=== PATIENT | female | born 1995 | race Caucasian/White ===

== ENCOUNTER 2017-11-09 17:32 | Inpatient (IN) | payer OTHER ==
[~2017-11-09] VITALS: Ht 175.3 cm; Wt 84.4 kg
[2017-11-09] MEDS ORDERED: SODIUM CHLOR 0.9% 1000 ML INJ 100 ML IV ONE (17:55)
[2017-11-09] MEDS ORDERED: SODIUM CHLOR 0.9% 1000 ML INJ 1,000 ML IV ONE ×2 (17:55)
[2017-11-09] MEDS ORDERED: SODIUM CHLORIDE 0.9% FLUSH 10 ML FLUSH IV FLUSH PRN (18:00)
[2017-11-09] MEDS ORDERED: ACETAMINOPHEN 325 MG TAB PO PRN (18:00)
[2017-11-09] MEDS ORDERED: ONDANSETRON HCL 4 MG/2 ML VIAL IV PUSH PRN (18:00)
[2017-11-09] MEDS ORDERED: ONDANSETRON ODT 4 MG TAB PO PRN (18:00)
[2017-11-09 18:10] VITALS: BP 118/61; PULSE 110
[2017-11-09] MEDS ORDERED: ACETAMINOPHEN 1000 MG/100 ML 100 ML IV ONE (18:15)
--- NOTE | 2017-11-09 18:23 | HHI.HP ---
HPI Chief Complaint fever and back pain Travel History International Travel<30 Days: No Contact w/Intl Traveler<30Days: No History of Present Illness HPI 22 yo G1 with iup at 35 w 3d by 9 wk u/s being admitted to for suspected pyelonephritis. Seh has had two days of left sided flank pain, subjective fevers adn chills. She has not had dysuria or frequency. Temp in office today 102.5F, UDip with 3+ leukocytes. BP 150/90. She had a BPP as she has had decreased FM for two days. BPP 6/8 (-2 for movement), Tracy 10, UA dopplers upper limit of normal and FHT 180's. care c/b subutex use, dose 8mg daily; sees Dr. Rolle in [place] for this. Initiated for chronic back pain. Weeks Gestation: 35 Para: 0 : 1 History Past Medical History Narrative Medical chronic back pain, opioid dependence LSIL pap Obstetric History Obstetric History G1 current Past Surgical History Surgical History: No Previous Surgery Family History Family History: Negative Social History Alcohol Use: No Tobacco Use: Yes Substance Abuse: Yes (subtex) Allergies-Medications (Allergen,Severity, Reaction): Coded Allergies: No Known Allergies (Unverified , 11/09/17) Review of Systems General / Constitutional: Fever, Chills Eyes: No: Diploplia, Blurred Vision, Visual changes, Pain, Photophobia HENT: No: Headaches, Vertigo, Lightheadedness Cardiovascular: No: Irregular Rhythm, Chest Pain or Discomfort, Palpitations, Tachycardia, Syncope, Varicosities, Edema, Cyanosis Respiratory: No: Cough, Short of Breath, Other Gastrointestinal: Nausea, No: Vomiting, Diarrhea, Abdominal Pain, Hematemesis, Hematochezia, Constipation, Changes in Bowel Habits, Indigestion, Loss of Appetite, Other Genitourinary: Other (cva tenderness left), No: Urgency, Frequency, Dysuria, Nocturia, Hematuria, Decreased Urinary Output, Oliguria, Hesitancy, Dribbling, Incontinence, Pelvic Pain, Dyspareunia, Discharge, Menorrhagia, Vaginal Bleeding Musculoskeletal: No: Limited ROM, Weakness, Cramping, Edema, Pain, Other Skin: No Rash, No Itching, No Dryness, No Lumps, No Change in Pigmentation, No Change in Nails, No Alopecia, No Lesions, No Breast Lumps, No Breast Tenderness , No Breast Swelling, No Other Neurologic: No: Weakness, Dizziness, Syncope, Focal Abnormalities, Coordination Problem, Headache, Slurred Speech, Seizures, Other Endocrine: No: Heat Intolerance, Cold Intolerance, Polydipsia, Polyuria, Other Hematologic/Lymphatic: No Easy Bruising, No Lymph Node Enlargement, No Other Physical Exam Narrative GENERAL: Well-nourished, well-developed patient. SKIN: Warm and dry. HEAD: Normocephalic and atraumatic. EYES: No scleral icterus. No injection or drainage. ENT: No nasal drainage noted. Mucous membranes pink. Airway patent. NECK: Supple, trachea midline. No JVD. CARDIOVASCULAR: Regular rate and rhythm without murmurs, gallops, or rubs. RESPIRATORY: No accessory muscle use. BREASTS decline ABDOMEN/GI: Abdomen soft, non-tender, bowel sounds present, no rebound, no guarding Gravid to 33 weeks size Fundal Height: [-] GENITOURINARY: External Genitalia: intact and normal in appearance BUS glands: [-] Cervix: nl, cl/th/high Presentation: ceph Membranes: [intact Uterine Contractions: [-] FHT's: tachycardia, 180's BPP 6/8 EXTREMITIES: No cyanosis or edema. BACK: CVA tenderness Left NEUROLOGICAL: Awake and alert. Motor and sensory grossly within normal limits. Five out of 5 muscle strength in all muscle groups. Normal speech. Caprini VTE Risk Assessment Caprini VTE Risk Assessment: No/Low Risk (score <= 1) Caprini Risk Assessment Model Point Value = 1 Point Value = 2 Point Value = 3 Point Value = 5 Age 41-60 Minor surgery BMI > 25 kg/m2 Swollen legs Varicose veins or History of unexplained or recurrent spontaneous Oral contraceptives or hormone replacement Sepsis (< 1 month) Serious lung disease, including pneumonia (< 1 month) Abnormal pulmonary function Acute myocardial infarction Congestive heart failure (< 1 month) History of inflammatory bowel disease Medical patient at bed rest Age 61-74 Arthroscopic surgery Major open surgery (> 45 min) Laparoscopic surgery (> 45 min) Malignancy Confined to bed (> 72 hours) Immobilizing plaster cast Central venous access Age >= 75 History of VTE Family history of VTE Factor V Leiden Prothrombin [id number] Lupus anticoagulant Anticardiolipin antibodies Elevated serum homocysteine Heparin-induced thrombocytopenia Other congenital or acquired thrombophilia Stroke (< 1 month) Elective arthroplasty Hip, pelvis, or leg fracture Acute spinal cord injury (< 1 month) Prophylaxis Regimen Total Risk Factor Score Risk Level Prophylaxis Regimen 0-1 Low Early ambulation 2 Moderate Order ONE of the following: *Sequential Compression Device (SCD) *Heparin 5000 units SQ BID 3-4 Higher Order ONE of the following medications: *Heparin 5000 units SQ TID *Enoxaparin/Lovenox 40 mg SQ daily (WT < 150 kg, CrCl > 30 mL/min) *Enoxaparin/Lovenox 30 mg SQ daily (WT < 150 kg, CrCl > 10-29 mL/min) *Enoxaparin/Lovenox 30 mg SQ BID (WT < 150 kg, CrCl > 30 mL/min) AND/OR *Sequential Compression Device (SCD) 5 or more Highest Order ONE of the following medications: *Heparin 5000 units SQ TID (Preferred with Epidurals) *Enoxaparin/Lovenox 40 mg SQ daily (WT < 150 kg, CrCl > 30 mL/min) *Enoxaparin/Lovenox 30 mg SQ daily (WT < 150 kg, CrCl > 10-29 mL/min) *Enoxaparin/Lovenox 30 mg SQ BID (WT < 150 kg, CrCl > 30 mL/min) AND *Sequential Compression Device (SCD) Data Data Vital Signs Reviewed: Yes Orders Orders Admit To Inpatient (11/09/17 ) Intake + Output 06,14,22 (11/09/17 17:55) Diet Regular Basic (11/09/17 Dinner) Lactated Ringer's 1000 Ml Inj (Lr 1000 M (11/09/17 17:55) Sodium Chloride 0.9% Flush (Ns Flush) (11/09/17 18:00) Sodium Chloride 0.9% Flush (Ns Flush) (11/09/17 21:00) Lactic Acid Sepsis Protocol (11/09/17 17:55) Comprehensive Metabolic Panel (11/10/17 06:00) Complete Blood Count With Diff (11/10/17 06:00) Blood Culture (11/09/17 17:55) Urinalysis - C+S If Indicated (11/09/17 17:55) Complete Blood Count With Diff (11/09/17 17:55) Comprehensive Metabolic Panel (11/09/17 17:55) Vte Prophylaxis Not Indicated (11/09/17 17:55) Scd Bilateral/Knee High ELSIE.BID (11/09/17 17:55) Sodium Chlor 0.9% 1000 Ml Inj (Ns 1000 M (11/09/17 17:55) Sodium Chlor 0.9% 1000 Ml Inj (Ns 1000 M (11/09/17 17:55) Sodium Chlor 0.9% 1000 Ml Inj (Ns 1000 M (11/09/17 17:55) Inpatient Certification (11/09/17 ) Specimen To Be Collected PRN (11/09/17 17:55) Vital Signs (Adult) ELSIE.I4H-ESAFA AWAKE (11/09/17 17:59) Heart (11/09/17 17:59) Activity Oob Ad Silva (11/09/17 17:59) Uric Acid (11/09/17 17:59) Acetaminophen (Tylenol) (11/09/17 18:00) Vxzrylbg-Pkc-Zaauy-Iron Prenat (Stuartna (11/10/17 09:00) Docusate Sodium (Colace) (11/10/17 09:00) Ondansetron Odt (Zofran Odt) (11/09/17 18:00) Ondansetron Inj (Zofran Inj) (11/09/17 18:00) Ferrous Sulfate (Ferrous Sulfate) (11/09/17 21:00) Ceftriaxone Inj (Rocephin Inj) (11/09/17 18:00) Acetaminophen 1000 Mg/100 Ml (Ofirmev 10 (11/09/17 18:15) Urine Culture (11/09/17 18:01) Specimen To Be Collected PRN (11/09/17 18:01) Assessment/Plan Problem List: (1) with 35 completed weeks gestation ICD Codes: Z3A.35 - 35 weeks gestation of (2) Pyelonephritis affecting in third trimester ICD Codes: O23.03 - Infections of kidney in , third trimester (3) tachycardia affecting management of mother ICD Codes: O76 - Abnormality in heart rate and rhythm complicating labor and delivery (4) Opioid abuse ICD Codes: F11.10 - Opioid abuse, uncomplicated (5) Tobacco dependence ICD Codes: F17.200 - Nicotine dependence, unspecified, uncomplicated Assessment and Plan 22 yo G1 with iup at 35w3d being admitted for pyelonephritis and tachycardia. 1) Pyelonephritis- flank pain, leuk on Udip in office, fever of 102.5F. Will order blood cx x 2, UCx, LA. Start IVF and Rocephin IV q 24 hours until sensitivities available 2) tachycardia- likely due to maternal fever, continuous monitoring 3) Opioid dependance- Subutex 8mg daily 4) Elevated BP- likely due to pain. [facility] labs ordered. 5) LSIL pap- repeat pp Debra Sarmiento MD November 09, 2017 18:23
[2017-11-09 18:33] VITALS: RESP 20
[2017-11-09 18:35] VITALS: TEMP 100.6
[2017-11-09] MEDS ORDERED: ZANT150T2 PO (18:56)
[2017-11-09] MEDS ORDERED: FERR325T18 PO (18:56)
[2017-11-09] MEDS ORDERED: BUPR8SUB SL (18:56)
[2017-11-09] MEDS ORDERED: PREN29TA PO (18:56)
[2017-11-09] MEDS ORDERED: ZOFR8TAB PO (18:56)
[2017-11-09] MEDS: cefTRIAXone INJ 1,000 MG in SODIUM CHLORIDE 0.9% INJ 100 ML IV SCH (19:08)
[2017-11-09 19:24] LABS: AUTOMATED NEUTROPHIL # 12.8 TH/MM3 (1.8-7.7); BASOPHIL % 0.2 % (0.0-2.0); HEMATOCRIT 29.4 % (35.0-46.0); HEMOGLOBIN 9.8 GM/DL (11.6-15.3); LYMPH % 4.8 % (9.0-44.0); LYMPHOCYTE # 0.7 TH/MM3 (1.0-4.8); MEAN CELL VOLUME 83.6 FL (80.0-100.0); MEAN CORPUSCULAR HEMOGLOBIN 27.9 PG (27.0-34.0); MEAN CORPUSCULAR HGB CONC 33.3 % (32.0-36.0); MONO % 6.5 % (0.0-8.0); MONOCYTE # 0.9 TH/MM3 (0-0.9); NEUT % 88.5 % (16.0-70.0); PLATELET COUNT 230 TH/MM3 (150-450); RED BLOOD COUNT 3.52 MIL/MM3 (4.00-5.30); RED CELL DISTRIBUTION WIDTH 12.7 % (11.6-17.2); WHITE BLOOD COUNT 14.5 TH/MM3 (4.0-11.0)
[2017-11-09 19:28] LABS: AMORPHOUS SEDIMENT, URINE RARE; BACTERIA, URINE OCC /hpf; BILIRUBIN, URINE NEG (NEG); BLOOD, URINE TRACE (NEG); GLUCOSE,URINE NEG (NEG); KETONE, URINE NEG (NEG); NITRITE,URINE NEG (NEG); RENAL EPITHELIAL CELLS 1 /hpf; SQUAMOUS EPITHELIAL CELL URINE 4 /hpf (0-5); URINE COLOR YELLOW (YELLW/STRAW); URINE LEUKOCYTE ESTERASE LARGE (NEG); WHITE BLOOD CELL CLUMPS RARE
[2017-11-09 19:44] LABS: ALBUMIN 2.7 GM/DL (3.4-5.0); AST (GOT) 11 U/L (15-37); BLOOD UREA NITROGEN 5 MG/DL (7-18); CALCIUM 8.3 MG/DL (8.5-10.1); CHLORIDE 100 MEQ/L (98-107); CREATININE 0.69 MG/DL (0.50-1.00); GLOMERULAR FILTRATION RATE 107 ML/MIN (>89); GLUCOSE,RANDOM 89 MG/DL (74-106); SODIUM (NA) 134 MEQ/L (136-145)
[2017-11-09 19:45] LABS: ALT (GPT) 17 U/L (10-53)
[2017-11-09 19:48] LABS: ALKALINE PHOSPHATASE 125 U/L (45-117); TOTAL BILIRUBIN ADULT 0.8 MG/DL (0.2-1.0); TOTAL PROTEIN 7.1 GM/DL (6.4-8.2)
[2017-11-09 19:55] VITALS: RESP 20; TEMP 100.5
[2017-11-09] MEDS: FERROUS SULFATE 325 MG (65 MG ELEMENTAL IRON) TAB PO SCH (19:58)
[2017-11-09] MEDS ORDERED: BUPRENORPHINE HCL 8 MG SUBLINGUAL TAB SL ONE (20:45)
[2017-11-09] MEDS: LACTATED RINGER'S 1000 ML INJ 1,000 ML IV SCH (20:49)
[2017-11-09 21:00] VITALS: TEMP 99.4
[2017-11-09] MEDS: SODIUM CHLORIDE 0.9% FLUSH 10 ML FLUSH IV FLUSH SCH (21:00)
[2017-11-09] MEDS ORDERED: ZOLPIDEM TARTRATE 5 MG TAB PO PRN (22:00)
[2017-11-09] MEDS ORDERED: BETAMETHASONE SOD PHOS/ACETATE SUSP 30 MG/5 ML VIAL IM SCH (22:00)
[2017-11-10] VITALS (10 sets, daily range): BP systolic 87–129; BP diastolic 32–76; PULSE 73–99; RESP 18; TEMP 97.3–97.6
[2017-11-10 06:01] LABS: AUTOMATED NEUTROPHIL # 14.3 TH/MM3 (1.8-7.7); BASOPHIL % 0.1 % (0.0-2.0); HEMATOCRIT 25.2 % (35.0-46.0); HEMOGLOBIN 8.6 GM/DL (11.6-15.3); LYMPH % 5.1 % (9.0-44.0); LYMPHOCYTE # 0.8 TH/MM3 (1.0-4.8); MEAN CELL VOLUME 83.6 FL (80.0-100.0); MEAN CORPUSCULAR HEMOGLOBIN 28.4 PG (27.0-34.0); MONO % 4.5 % (0.0-8.0); MONOCYTE # 0.7 TH/MM3 (0-0.9); NEUT % 90.3 % (16.0-70.0); PLATELET COUNT 202 TH/MM3 (150-450); RED BLOOD COUNT 3.01 MIL/MM3 (4.00-5.30); RED CELL DISTRIBUTION WIDTH 13.1 % (11.6-17.2); WHITE BLOOD COUNT 15.8 TH/MM3 (4.0-11.0)
[2017-11-10 06:25] LABS: ALBUMIN 2.2 GM/DL (3.4-5.0); ALKALINE PHOSPHATASE 97 U/L (45-117); ALT (GPT) 17 U/L (10-53); AST (GOT) 13 U/L (15-37); BICARBONATE 21.6 MEQ/L (21.0-32.0); BLOOD UREA NITROGEN 4 MG/DL (7-18); CALCIUM 8.2 MG/DL (8.5-10.1); CHLORIDE 110 MEQ/L (98-107); CREATININE 0.49 MG/DL (0.50-1.00); GLOMERULAR FILTRATION RATE 159 ML/MIN (>89); GLUCOSE,RANDOM 131 MG/DL (74-106); SODIUM (NA) 143 MEQ/L (136-145); TOTAL BILIRUBIN ADULT 0.4 MG/DL (0.2-1.0); TOTAL PROTEIN 5.9 GM/DL (6.4-8.2)
--- NOTE | 2017-11-10 08:29 | PD.OB.ANTE ---
Subjective Diagnosis: (1) with 35 completed weeks gestation (2) Pyelonephritis affecting in third trimester (3) tachycardia affecting management of mother (4) Opioid abuse (5) Tobacco dependence Interval History Quiet night with fever resolving mild contractions have stopped\ feeling well this am GFM no leaking or bleeding Objective Vital Signs Vital Signs Date Time Temp Pulse Resp B/P (MAP) Pulse Ox O2 Delivery O2 Flow Rate FiO2 11/10/17 07:49 83 87/32 (50) 11/10/17 04:17 87 115/51 (72) 11/10/17 04:16 97.3 11/10/17 00:02 99 108/56 (73) 11/09/17 21:00 99.4 11/09/17 19:55 100.5 11/09/17 19:55 20 11/09/17 18:35 100.6 11/09/17 18:33 20 11/09/17 18:10 110 118/61 (80) Lab & Micro Results Test 11/09/17 18:55 11/10/17 04:55 White Blood Count 14.5 TH/MM3 15.8 TH/MM3 Red Blood Count 3.52 MIL/MM3 3.01 MIL/MM3 Hemoglobin 9.8 GM/DL 8.6 GM/DL Hematocrit 29.4 % 25.2 % Mean Corpuscular Volume 83.6 FL 83.6 FL Mean Corpuscular Hemoglobin 27.9 PG 28.4 PG Mean Corpuscular Hemoglobin Concent 33.3 % 34.0 % Red Cell Distribution Width 12.7 % 13.1 % Platelet Count 230 TH/MM3 202 TH/MM3 Mean Platelet Volume 8.0 FL 8.0 FL Neutrophils (%) (Auto) 88.5 % 90.3 % Lymphocytes (%) (Auto) 4.8 % 5.1 % Monocytes (%) (Auto) 6.5 % 4.5 % Eosinophils (%) (Auto) 0.0 % 0.0 % Basophils (%) (Auto) 0.2 % 0.1 % Neutrophils # (Auto) 12.8 TH/MM3 14.3 TH/MM3 Lymphocytes # (Auto) 0.7 TH/MM3 0.8 TH/MM3 Monocytes # (Auto) 0.9 TH/MM3 0.7 TH/MM3 Eosinophils # (Auto) 0.0 TH/MM3 0.0 TH/MM3 Basophils # (Auto) 0.0 TH/MM3 0.0 TH/MM3 CBC Comment DIFF FINAL DIFF FINAL Differential Comment Urine Color YELLOW Urine Turbidity HAZY Urine pH 7.0 Urine Specific [place] 1.007 Urine Protein TRACE mg/dL Urine Glucose (UA) NEG mg/dL Urine Ketones NEG mg/dL Urine Occult Blood TRACE Urine Nitrite NEG Urine Bilirubin NEG Urine Urobilinogen LESS THAN 2.0 MG/DL Urine Leukocyte Esterase LARGE Urine RBC 2 /hpf Urine WBC 145 /hpf Urine WBC Clumps RARE Urine Squamous Epithelial Cells 4 /hpf Urine Renal Epithelial Cells 1 /hpf Urine Amorphous Sediment RARE Urine Bacteria OCC /hpf Microscopic Urinalysis Comment CULTURE INDICATED Blood Urea Nitrogen 5 MG/DL 4 MG/DL Creatinine 0.69 MG/DL 0.49 MG/DL Random Glucose 89 MG/DL 131 MG/DL Total Protein 7.1 GM/DL 5.9 GM/DL Albumin 2.7 GM/DL 2.2 GM/DL Calcium Level 8.3 MG/DL 8.2 MG/DL Uric Acid 4.1 MG/DL Alkaline Phosphatase 125 U/L 97 U/L Aspartate Amino Transf (AST/SGOT) 11 U/L 13 U/L Alanine Aminotransferase (ALT/SGPT) 17 U/L 17 U/L Total Bilirubin 0.8 MG/DL 0.4 MG/DL Sodium Level 134 MEQ/L 143 MEQ/L Potassium Level 3.4 MEQ/L 3.3 MEQ/L Chloride Level 100 MEQ/L 110 MEQ/L Carbon Dioxide Level 25.0 MEQ/L 21.6 MEQ/L Anion Gap 9 MEQ/L 11 MEQ/L Estimat Glomerular Filtration Rate 107 ML/MIN 159 ML/MIN Lactic Acid Level 1.2 mmol/L Urine Opiates Screen NEG Urine Barbiturates Screen NEG Urine Amphetamines Screen NEG Urine Benzodiazepines Screen NEG Urine Cocaine Screen NEG Urine Cannabinoids Screen NEG Date/Time Source Procedure Growth Status 11/09/17 18:47 Blood Peripheral Aerobic Blood Culture Pending Received 11/09/17 18:47 Blood Peripheral Anaerobic Blood Culture Pending Received 11/09/17 19:50 Genital Genital Region Group B Streptococcus Screen Pending Received 11/09/17 18:55 Urine Clean Catch Urine Culture Pending Received Physical Exam GENERAL: Well-nourished, well-developed patient. CARDIOVASCULAR: Regular rate and rhythm without murmurs, gallops, or rubs. RESPIRATORY: Breath sounds equal bilaterally. No accessory muscle use. ABDOMEN/GI: Abdomen soft, non-tender. strip category one tachycardia of evening has resolved no CVAT EXTREMITIES: No cyanosis or edema, non-tender, without signs of DVT. Assessment and Plan Problem List: (1) with 35 completed weeks gestation ICD Codes: Z3A.35 - 35 weeks gestation of (2) Pyelonephritis affecting in third trimester ICD Codes: O23.03 - Infections of kidney in , third trimester (3) tachycardia affecting management of mother ICD Codes: O76 - Abnormality in heart rate and rhythm complicating labor and delivery (4) Opioid abuse ICD Codes: F11.10 - Opioid abuse, uncomplicated (5) Tobacco dependence ICD Codes: F17.200 - Nicotine dependence, unspecified, uncomplicated Assessment and Plan 22 yo G1 with iup at 35w3d being admitted for pyelonephritis and tachycardia. 1) Pyelonephritis- flank pain, leuk on Udip in office, fever of 102.5F. Will order blood cx x 2, UCx, LA. Start IVF and Rocephin IV q 24 hours until sensitivities available 2) tachycardia- likely due to maternal fever, continuous monitoring 3) Opioid dependance- Subutex 8mg daily 4) Elevated BP- likely due to pain. [facility] labs ordered. 5) LSIL pap- repeat pp HD 2 35 + week IUP received steroids pyelonephritis responding to antibiotics tachycardia resolved opioid dependence stable on MAT and gets counseling, UDS and pill counts with Holli BP elevated. resolved counseled on pre eclampsia will continue IV abx one more day and send home with script on Monday Vielka Posey MD November 10, 2017 08:29
[2017-11-10] MEDS ORDERED: MULTIVIT/MIN/PREN/FOL AC/IRON PRENATAL TAB PO SCH (09:00)
[2017-11-10] MEDS: SODIUM CHLORIDE 0.9% FLUSH 10 ML FLUSH IV FLUSH SCH (09:00)
[2017-11-10] MEDS ORDERED: DOCUSATE SODIUM 100 MG CAP PO SCH (09:00)
[2017-11-10] MEDS: FERROUS SULFATE 325 MG (65 MG ELEMENTAL IRON) TAB PO SCH (09:19)
[2017-11-10] MEDS: BUPRENORPHINE HCL 8 MG SUBLINGUAL TAB SL SCH ×3 (09:19→18:00)
[2017-11-10] MEDS: LACTATED RINGER'S 1000 ML INJ 1,000 ML IV SCH (09:24)
[2017-11-10] MEDS ORDERED: AUGM500T7 PO (14:46)
--- NOTE | 2017-11-10 14:47 | HHI.DCPOC ---
Discharge Care Plan Your Health Problems Are: Abdominal pain Fever, temperature>100.4 Pelvic pain Rash Vaginal bleeding Urinary difficulties Report Symptoms to Your Doctor -Temperature above 100.5 degrees -Redness, of incision or excessive or foul smelling drainage -Unusual pain or calf pain -Increased vaginal bleeding -Painful or difficulty urinating -Feelings of extreme sadness or anxiety after 2 weeks Goals to Promote Your Health * To prevent worsening of your condition and complications * To maintain your health at the optimal level Directions to Meet Your Goals Take your medications as prescribed Follow your dietary instruction Follow activity as directed Ensure plenty of rest for recovery Drink fluids for hydration Keep your appointments as scheduled Take your immunizations and boosters as scheduled If your symptoms worsen call your PCP, if no PCP go to Urgent Care Center or Emergency Room Smoking is Dangerous to Your Health. Avoid second hand smoke Call the 24-hour crisis hotline for domestic abuse at Watson Avalos MD November 10, 2017 14:47
--- NOTE | 2017-11-10 14:55 | PD.OB.ANTE ---
Subjective Diagnosis: (1) with 35 completed weeks gestation (2) Pyelonephritis affecting in third trimester (3) tachycardia affecting management of mother (4) Opioid abuse (5) Tobacco dependence Interval History Patient has no c/o, doing well, no fever, N/v/d; desires discharge home Objective Vital Signs Vital Signs Date Time Temp Pulse Resp B/P (MAP) Pulse Ox O2 Delivery O2 Flow Rate FiO2 11/10/17 11:52 97.6 18 11/10/17 11:06 90 129/76 (93) 11/10/17 07:49 83 87/32 (50) 11/10/17 04:17 87 115/51 (72) 11/10/17 04:16 97.3 11/10/17 00:02 99 108/56 (73) 11/09/17 21:00 99.4 11/09/17 19:55 100.5 11/09/17 19:55 20 11/09/17 18:35 100.6 11/09/17 18:33 20 11/09/17 18:10 110 118/61 (80) Lab & Micro Results Test 11/09/17 18:55 11/10/17 04:55 White Blood Count 14.5 TH/MM3 15.8 TH/MM3 Red Blood Count 3.52 MIL/MM3 3.01 MIL/MM3 Hemoglobin 9.8 GM/DL 8.6 GM/DL Hematocrit 29.4 % 25.2 % Mean Corpuscular Volume 83.6 FL 83.6 FL Mean Corpuscular Hemoglobin 27.9 PG 28.4 PG Mean Corpuscular Hemoglobin Concent 33.3 % 34.0 % Red Cell Distribution Width 12.7 % 13.1 % Platelet Count 230 TH/MM3 202 TH/MM3 Mean Platelet Volume 8.0 FL 8.0 FL Neutrophils (%) (Auto) 88.5 % 90.3 % Lymphocytes (%) (Auto) 4.8 % 5.1 % Monocytes (%) (Auto) 6.5 % 4.5 % Eosinophils (%) (Auto) 0.0 % 0.0 % Basophils (%) (Auto) 0.2 % 0.1 % Neutrophils # (Auto) 12.8 TH/MM3 14.3 TH/MM3 Lymphocytes # (Auto) 0.7 TH/MM3 0.8 TH/MM3 Monocytes # (Auto) 0.9 TH/MM3 0.7 TH/MM3 Eosinophils # (Auto) 0.0 TH/MM3 0.0 TH/MM3 Basophils # (Auto) 0.0 TH/MM3 0.0 TH/MM3 CBC Comment DIFF FINAL DIFF FINAL Differential Comment Urine Color YELLOW Urine Turbidity HAZY Urine pH 7.0 Urine Specific [place] 1.007 Urine Protein TRACE mg/dL Urine Glucose (UA) NEG mg/dL Urine Ketones NEG mg/dL Urine Occult Blood TRACE Urine Nitrite NEG Urine Bilirubin NEG Urine Urobilinogen LESS THAN 2.0 MG/DL Urine Leukocyte Esterase LARGE Urine RBC 2 /hpf Urine WBC 145 /hpf Urine WBC Clumps RARE Urine Squamous Epithelial Cells 4 /hpf Urine Renal Epithelial Cells 1 /hpf Urine Amorphous Sediment RARE Urine Bacteria OCC /hpf Microscopic Urinalysis Comment CULTURE INDICATED Blood Urea Nitrogen 5 MG/DL 4 MG/DL Creatinine 0.69 MG/DL 0.49 MG/DL Random Glucose 89 MG/DL 131 MG/DL Total Protein 7.1 GM/DL 5.9 GM/DL Albumin 2.7 GM/DL 2.2 GM/DL Calcium Level 8.3 MG/DL 8.2 MG/DL Uric Acid 4.1 MG/DL Alkaline Phosphatase 125 U/L 97 U/L Aspartate Amino Transf (AST/SGOT) 11 U/L 13 U/L Alanine Aminotransferase (ALT/SGPT) 17 U/L 17 U/L Total Bilirubin 0.8 MG/DL 0.4 MG/DL Sodium Level 134 MEQ/L 143 MEQ/L Potassium Level 3.4 MEQ/L 3.3 MEQ/L Chloride Level 100 MEQ/L 110 MEQ/L Carbon Dioxide Level 25.0 MEQ/L 21.6 MEQ/L Anion Gap 9 MEQ/L 11 MEQ/L Estimat Glomerular Filtration Rate 107 ML/MIN 159 ML/MIN Lactic Acid Level 1.2 mmol/L Urine Opiates Screen NEG Urine Barbiturates Screen NEG Urine Amphetamines Screen NEG Urine Benzodiazepines Screen NEG Urine Cocaine Screen NEG Urine Cannabinoids Screen NEG Date/Time Source Procedure Growth Status 11/09/17 18:47 Blood Peripheral Aerobic Blood Culture - Preliminary NO GROWTH IN 1 DAY Resulted 11/09/17 18:47 Blood Peripheral Anaerobic Blood Culture - Preliminary NO GROWTH IN 1 DAY Resulted 11/09/17 19:50 Genital Genital Region Group B Streptococcus Screen Pending Received 11/09/17 18:55 Urine Clean Catch Urine Culture - Preliminary Gram Negative Jorge Resulted Physical Exam GENERAL: Well-nourished, well-developed patient. CARDIOVASCULAR: Regular rate and rhythm without murmurs, gallops, or rubs. RESPIRATORY: Breath sounds equal bilaterally. No accessory muscle use. ABDOMEN/GI: Abdomen soft, non-tender. GENITOURINARY: External Genitalia: Membranes: intact Uterine Contractions: none FHT's: Category: 1 EXTREMITIES: No cyanosis or edema, non-tender, without signs of DVT. Assessment and Plan Problem List: (1) with 35 completed weeks gestation ICD Codes: Z3A.35 - 35 weeks gestation of (2) Pyelonephritis affecting in third trimester ICD Codes: O23.03 - Infections of kidney in , third trimester (3) tachycardia affecting management of mother ICD Codes: O76 - Abnormality in heart rate and rhythm complicating labor and delivery (4) Opioid abuse ICD Codes: F11.10 - Opioid abuse, uncomplicated (5) Tobacco dependence ICD Codes: F17.200 - Nicotine dependence, unspecified, uncomplicated Assessment and Plan 22 yo G1 with iup at 35w3d being admitted for pyelonephritis and tachycardia. 1) Pyelonephritis- flank pain, leuk on Udip in office, fever of 102.5F. Will order blood cx x 2, UCx, LA. Start IVF and Rocephin IV q 24 hours until sensitivities available 2) tachycardia- likely due to maternal fever, continuous monitoring 3) Opioid dependance- Subutex 8mg daily 4) Elevated BP- likely due to pain. [facility] labs ordered. 5) LSIL pap- repeat pp HD 2 35 + week IUP received steroids pyelonephritis responding to antibiotics tachycardia resolved opioid dependence stable on MAT and gets counseling, UDS and pill counts with Holli BP elevated. resolved counseled on pre eclampsia will continue IV abx second dose today, and betamethasone ,will discharge home on AUGMENTIN 500 mg TID x 7. Home precautions given Watson Avalos MD November 10, 2017 14:55
[2017-11-10] MEDS: cefTRIAXone INJ 1,000 MG in SODIUM CHLORIDE 0.9% INJ 100 ML IV SCH (18:00)
== END 2017-11-10 21:27 | disposition home or self-care (01) | DRG 781 ==
LOC: H2EA 17:32 → OBSVTOIN 17:58
PROVIDERS: ADMIT Obstetrics & Gynecology; ATTEND Obstetrics & Gynecology
DX: O23.03 Infections of kidney in pregnancy, third trimester (principal); O99.323 Drug use complicating pregnancy, third trimester; N12 Tubulo-interstitial nephritis, not specified as acute or chronic; O76 Abnormality in fetal heart rate and rhythm complicating labor and delivery; Z3A.35 35 weeks gestation of pregnancy; F11.10 Opioid abuse, uncomplicated; O99.333 Smoking (tobacco) complicating pregnancy, third trimester; F17.200 Nicotine dependence, unspecified, uncomplicated
CPT/HCPCS: 80053; 80307; 81001; 83605; 84550; 85025; 86900; 86901; 87040; 87077; 87081; 87086; 87186; G0481; J0131; J0696; J0702; J7030; J7120

== ENCOUNTER 2017-12-08 20:28 | Inpatient (IN) | payer SELFPAY ==
[~2017-12-08] VITALS: Ht 175.3 cm; Wt 84.0 kg
[~2017-12-08 20:28] MED LIST: AUGM500T7 PO; BUPR8SUB SL; FERR325T18 PO; PREN29TA PO; ZANT150T2 PO; ZOFR8TAB PO
[2017-12-08] MEDS ORDERED: DINOPROSTONE 10 MG INSERT-LEAVE FOR 12 HOURS VAGINAL ONE (21:15)
[2017-12-08] MEDS ORDERED: NS 1000 ML OTHER PRN (21:15)
[2017-12-08] MEDS ORDERED: LACTATED RINGER'S 1000 ML BOLUS IV PRN (21:30)
[2017-12-08] MEDS ORDERED: NS 1000 ML IV PRN (21:30)
[2017-12-08] MEDS ORDERED: LIDOCAINE HCL 1% 50 ML VIAL I-DERMAL PRN (21:30)
[2017-12-08] MEDS ORDERED: MINERAL OIL 10 ML VIAL TOPICAL PRN (21:30)
[2017-12-08] MEDS ORDERED: OXYTOCIN 30 UNITS 500ML PREMIX IV ONE (21:30)
[2017-12-08] MEDS ORDERED: CITRIC ACID-SODIUM CITRATE LIQ 30 ML UDC PO SCH (21:30)
[2017-12-08] MEDS ORDERED: LIDOCAINE HCL 1% 50 ML VIAL INFIL PRN (21:30)
[2017-12-08] MEDS ORDERED: NS 500 ML BOLUS IV PRN (21:30)
[2017-12-08] MEDS ORDERED: LACTATED RINGER'S 1000 ML IV SCH (22:00)
[2017-12-08 22:22] LABS: AUTOMATED NEUTROPHIL # 5.1 TH/MM3 (1.8-7.7); BASOPHIL % 0.3 % (0.0-2.0); EOSINOPHIL # 0.1 TH/MM3 (0-0.4); EOSINOPHIL % 1.2 % (0.0-4.0); HEMOGLOBIN 9.4 GM/DL (11.6-15.3); LYMPH % 25.3 % (9.0-44.0); MEAN CELL VOLUME 82.4 FL (80.0-100.0); MEAN CORPUSCULAR HEMOGLOBIN 27.7 PG (27.0-34.0); MEAN CORPUSCULAR HGB CONC 33.5 % (32.0-36.0); MEAN PLATELET VOLUME 7.9 FL (7.0-11.0); MONO % 8.7 % (0.0-8.0); MONOCYTE # 0.7 TH/MM3 (0-0.9); NEUT % 64.5 % (16.0-70.0); PLATELET COUNT 282 TH/MM3 (150-450); RED CELL DISTRIBUTION WIDTH 13.6 % (11.6-17.2)
[2017-12-08 22:25] LABS: BACTERIA, URINE RARE /hpf; BILIRUBIN, URINE NEG (NEG); BLOOD, URINE SMALL (NEG); GLUCOSE,URINE NEG (NEG); KETONE, URINE NEG (NEG); NITRITE,URINE NEG (NEG); PH, URINE 6.5 (5.0-8.5); SQUAMOUS EPITHELIAL CELL URINE 4 /hpf (0-5); URINE COLOR YELLOW (YELLW/STRAW); URINE LEUKOCYTE ESTERASE LARGE (NEG)
[2017-12-08] MEDS: LACTATED RINGER'S 1000 ML INJ 1,000 ML IV SCH (22:32)
--- NOTE | 2017-12-09 09:47 | PD.LABORPN ---
Subjective Subjective pt resting with cervidil since last night Objective Vital Signs vss afeb Objective Pelvic Exam: Cervix: [-] Dilatation: [-] 2 Effacement: [-] 50 Station: [-] -1 Presentation: [-] vtx Membranes: [intact or ruptured] arom +mec Uterine Contractions: [-] irreg FHT's: Category: [-] 1 Baseline: [-] Reactive: [-] R Variability: [-] Decels: [-] Weeks Gestation: 39 Gest Age Assessed Date: Dec 09, 2017 Gest Age Assessed Time: 09:45 Pt started active labor?: No Medical induction of labor?: Yes Medical induction start date: Dec 08, 2017 Medical induction start time: 22:00 Artificial ROM date: Dec 09, 2017 Artifical ROM time: 09:30 Assessment/Plan Problem List: (1) state, incidental ICD Codes: Z33.1 - state, incidental (2) tachycardia affecting management of mother ICD Codes: O76 - Abnormality in heart rate and rhythm complicating labor and delivery (3) Tobacco dependence ICD Codes: F17.200 - Nicotine dependence, unspecified, uncomplicated (4) Opioid abuse ICD Codes: F11.10 - Opioid abuse, uncomplicated Assessment and Plan IUP at 39 + wks, tachy at BPP in office, h/o sobutex use s/p cervidil, arom +mec pitocin feb, analgesia prn, anticipate Jayne Brock MD Dec 09, 2017 09:47
[2017-12-09] MEDS ORDERED: OXYTOCIN 30 UNITS-500ML PREMIX 500 ML IV PRN (10:00)
[2017-12-09] MEDS: LACTATED RINGER'S 1000 ML INJ 1,000 ML IV SCH (10:11)
[2017-12-09] MEDS ORDERED: ePHEDrine/NS 25 MG/5 ML SYRINGE ONE (16:05)
[2017-12-09] MEDS ORDERED: fentaNYL 2MCG-BUPIV 0.125% INJ 150 ML EPIDURAL ONE (16:05)
[2017-12-09] MEDS ORDERED: LIDOCAINE 2%/EPINEPHrine 1:100,000 20ML MDV ONE (16:35)
[2017-12-09] MEDS ORDERED: NO SYSTEM NARCOTICS PRN (17:30)
[2017-12-09] MEDS ORDERED: fentaNYL 2MCG-BUPIV 0.125% 150 ML EPIDURAL PRN (17:30)
[2017-12-09] MEDS ORDERED: DO NOT ADMINISTER ANTICOAGULANTS PRN (17:30)
[2017-12-09] MEDS ORDERED: ePHEDrine/NS 25 MG/5 ML SYRINGE IV PUSH PRN (17:30)
[2017-12-10] MEDS ORDERED: MISOPROSTOL 200 MCG TAB ONE ×2 (02:21)
--- NOTE | 2017-12-10 02:23 | PD.OB.DELI ---
Weeks gestation: 39 Gest age assessed date: Dec 09, 2017 Gest age assessed time: 09:45 Pt started active labor?: No Medical induction of labor?: Yes Medical induction start date: Dec 08, 2017 Medical induction start time: 22:00 Artificial ROM date: Dec 09, 2017 Artifical ROM time: 09:30 Anesthesia: Epidural Episiotomy: None Vaginal Delivery: Normal Presentation: Occiput anterior (KAE) Nuchal Cord: None Delayed cord clamping (45 sec): Yes : Female Delivery date: Dec 10, 2017 Delivery time: 02:06 One Minute : 9 Five Minute : 9 Placenta: Spontaneous delivery Laceration: 1 deg Repair: Chromic interrupted Estimated blood loss: 250cc Jayne Brock MD Dec 10, 2017 02:23
[2017-12-10] MEDS ORDERED: ACETAMINOPHEN 325 MG TAB PO PRN (02:30)
[2017-12-10] MEDS ORDERED: OXYTOCIN 30 UNITS-500ML PREMIX 500 ML IV SCH (02:30)
[2017-12-10] MEDS ORDERED: ZOLPIDEM TARTRATE 5 MG TAB PO PRN (02:30)
[2017-12-10] MEDS ORDERED: ALUMINUM/MAGNESIUM/SIMETH 30 ML CUP PO PRN (02:30)
[2017-12-10] MEDS ORDERED: ONDANSETRON ODT 4 MG TAB PO PRN (02:30)
[2017-12-10] MEDS ORDERED: WITCH HAZEL 50%/GLYCERIN 12.5% 40 PAD JAR TOPICAL PRN (02:30)
[2017-12-10] MEDS ORDERED: MISOPROSTOL 200 MCG TAB PO ONE (02:30)
[2017-12-10] MEDS ORDERED: SODIUM CHLORIDE 0.9% FLUSH 10 ML FLUSH IV FLUSH PRN (02:30)
[2017-12-10] MEDS ORDERED: BENZOCAINE 20% TOPICAL SPRAY 60 ML CAN TOPICAL PRN (02:30)
[2017-12-10] MEDS ORDERED: DOCUSATE SODIUM 50 MG/SENNA 8.6 MG TAB PO PRN (02:30)
[2017-12-10] MEDS: IBUPROFEN 800 MG TAB PO PRN ×2 (03:28→22:54)
[2017-12-10 08:00] VITALS: BP 135/80; PULSE 60; RESP 18; TEMP 98.7; O2SAT 93
[2017-12-10] MEDS ORDERED: SODIUM CHLORIDE 0.9% FLUSH 10 ML FLUSH IV FLUSH SCH (09:00)
[2017-12-10] MEDS: BUPRENORPHINE HCL 8 MG SUBLINGUAL TAB SL SCH ×3 (09:22→17:57)
[2017-12-10] MEDS ORDERED: DIPHTH/TETANUS/ACEL PERTUSSIS (BOOSTER) 0.5 ML VIAL/PFS IM ONE (16:00)
[2017-12-10] MEDS ORDERED: MEASLES, MUMPS, RUBELLA VACCINE 0.5 ML VIAL SQ ONE (16:00)
--- NOTE | 2017-12-11 08:29 | HHI.OB ---
Subjective Post Day: 1 Remarks s/p , infant in NICU for withdrawal symptoms; pt on suboxone Objective Objective Remarks GENERAL: Well-nourished, well-developed patient. CARDIOVASCULAR: Regular rate and rhythm without murmurs, gallops, or rubs. RESPIRATORY: Breath sounds equal bilaterally. No accessory muscle use. ABDOMEN/GI: Abdomen soft, non-tender. Fundus: Firm, non-tender at umbilicus. GENITOURINARY: Light to moderate bleeding. EXTREMITIES: No cyanosis or edema, non-tender, without signs of DVT. Medications and IVs Current Medications Medications (Trade) Dose Ordered Sig/Ayanna Route Start Time Stop Time Status Last Admin (NS Flush) 2 ml BID IV FLUSH 12/10/17 09:00 (NS Flush) 2 ml UNSCH PRN IV FLUSH 12/10/17 02:30 (Tylenol) 650 mg Q4H PRN PO 12/10/17 02:30 12/10/17 03:28 (Motrin) 800 mg Q8H PRN PO 12/10/17 02:30 12/10/17 22:54 (Americaine 20% Top Spr) 1 spray Q4H PRN TOPICAL 12/10/17 02:30 (Tucks Pads) 1 applic QID PRN TOPICAL 12/10/17 02:30 12/10/17 22:54 (Aminata-Colace) 2 tab Q12H PRN PO 12/10/17 02:30 (Ambien) 5 mg HS PRN PO 12/10/17 02:30 (Mag-Al Plus Susp Liq) 15 ml Q8H PRN PO 12/10/17 02:30 (Zofran Odt) 4 mg Q6H PRN PO 12/10/17 02:30 (Buprenorphine) 8 mg TID SL 12/10/17 09:00 12/10/17 17:57 Assessment/Plan Problem List: (1) (spontaneous vaginal delivery) ICD Codes: O80 - Encounter for full-term uncomplicated delivery (2) tachycardia affecting management of mother ICD Codes: O76 - Abnormality in heart rate and rhythm complicating labor and delivery (3) Tobacco dependence ICD Codes: F17.200 - Nicotine dependence, unspecified, uncomplicated (4) Opioid abuse ICD Codes: F11.10 - Opioid abuse, uncomplicated Assessment and Plan PPD#1 - routine supportive care, in NICU, plan for pt discharge tmrw Discharge Planning routine, 12/12/17 Katt Miguel MD Dec 11, 2017 08:29
[2017-12-11] MEDS: BUPRENORPHINE HCL 8 MG SUBLINGUAL TAB SL SCH ×2 (09:02→12:46)
--- NOTE | 2017-12-11 11:16 | HHI.DCPOC ---
Discharge Care Plan Diagnosis: (1) (spontaneous vaginal delivery) Your Health Problems Are: Vaginal delivery Report Symptoms to Your Doctor -Temperature above 100.5 degrees -Redness, of incision or excessive or foul smelling drainage -Unusual pain or calf pain -Increased vaginal bleeding -Painful or difficulty urinating -Feelings of extreme sadness or anxiety after 2 weeks Goals to Promote Your Health * To prevent worsening of your condition and complications * To maintain your health at the optimal level Directions to Meet Your Goals Take your medications as prescribed Follow your dietary instruction Follow activity as directed Ensure plenty of rest for recovery Drink fluids for hydration Keep your appointments as scheduled Take your immunizations and boosters as scheduled If your symptoms worsen call your PCP, if no PCP go to Urgent Care Center or Emergency Room Smoking is Dangerous to Your Health. Avoid second hand smoke Call the 24-hour crisis hotline for domestic abuse at Katt Miguel MD Dec 11, 2017 11:16
[2017-12-11] MEDS: IBUPROFEN 800 MG TAB PO PRN (12:32)
== END 2017-12-11 13:11 | disposition home or self-care (01) | DRG 775 ==
LOC: H2EA 20:28 → H1EA 12-10 04:59
PROVIDERS: ADMIT Obstetrics & Gynecology; ATTEND Obstetrics & Gynecology
PROC: 3E0P7VZ Introduction of Hormone into Female Reproductive, Via Natural or Artificial Opening (ICD-10-PCS; 2017-12-08)
PROC: 10907ZC Drainage of Amniotic Fluid, Therapeutic from Products of Conception, Via Natural or Artificial Opening (ICD-10-PCS; 2017-12-09)
PROC: 10E0XZZ Delivery of Products of Conception, External Approach (ICD-10-PCS; principal; 2017-12-10)
PROC: 0HQ9XZZ Repair Perineum Skin, External Approach (ICD-10-PCS; 2017-12-10)
DX: O99.324 Drug use complicating childbirth (principal); F11.10 Opioid abuse, uncomplicated; O99.334 Smoking (tobacco) complicating childbirth; O76 Abnormality in fetal heart rate and rhythm complicating labor and delivery; O77.0 Labor and delivery complicated by meconium in amniotic fluid; O70.9 Perineal laceration during delivery, unspecified; F17.200 Nicotine dependence, unspecified, uncomplicated; Z37.0 Single live birth; Z3A.39 39 weeks gestation of pregnancy
CPT/HCPCS: 59025; 80307; 81001; 85025; 86900; 86901; 88307; J2590; J3010; J7120